=== PATIENT | female | born 1970 | race Native Hawaiian/Other Pacific Islander ===

== ENCOUNTER 2017-06-23 09:05 | Inpatient (IN) | payer MEDICAID ==
[2017-06-18 12:58] VITALS: BMI 34.0
[2017-06-23] MEDS ORDERED: Lidocaine 1% Inj (20ml) ONE (12:58)
[2017-06-23] MEDS ORDERED: Bupivacaine HCl 0.25% PF (10 ml) Inj ONE (12:58)
[2017-06-23] MEDS ORDERED: ceFAZolin IV 1 gm in Dextrose 1 GM/50 ML BAG IVPB ONE (12:58)
[2017-06-23] MEDS ORDERED: Midazolam 2 MG/2 ML VIAL ONE (13:01)
[2017-06-23] MEDS ORDERED: Propofol 10 mg/ml Inj (20 ML) ONE ×2 (13:01→13:31)
[2017-06-23] MEDS ORDERED: Lactated Ringer's 1,000 ML IV ONE (13:05)
[2017-06-23] MEDS ORDERED: Oxycodone/Acetaminophen 5/325 mg Tab PO PRN (13:38)
--- NOTE | 2017-06-23 18:35 | CP.PCM.CON ---
History of Present Illness - History of Present Illness History of Present Illness: s/p drainage neck abscess iv rx in progress Review of Systems - Review of Systems Systems not reviewed;Unavailable: Language Barrier All systems: reviewed and no additional remarkable complaints except - Integumentary Integumentary: As Per HPI Past Patient History - Past Medical History & Family History Past Medical History?: Yes - Past Social History Smoking Status: Never Smoked - CARDIAC Hx Hypercholesterolemia: Yes - PULMONARY Hx Respiratory Disorders: No - NEUROLOGICAL Hx Neurological Disorder: No - HEENT Hx HEENT Problems: No - RENAL Hx Chronic Kidney Disease: No - ENDOCRINE/METABOLIC Hx Endocrine Disorders: No - HEMATOLOGICAL/ONCOLOGICAL Hx Blood Disorders: No - INTEGUMENTARY Hx Dermatological Problems: Yes (LEFT NECK MASS) - MUSCULOSKELETAL/RHEUMATOLOGICAL Hx Musculoskeletal Disorders: Yes (NERVE PAIN LEFT ARM NO LONGER) Hx Falls: No - GASTROINTESTINAL Hx Gastrointestinal Disorders: No - GENITOURINARY/GYNECOLOGICAL Hx Genitourinary Disorders: No - PSYCHIATRIC Hx Psychophysiologic Disorder: No Hx Substance Use: No - SURGICAL HISTORY Hx Surgeries: No - ANESTHESIA Hx Anesthesia: No Has any member of the family had a problem w/ anesthesia?: No Meds Allergies/Adverse Reactions: Allergies Allergy/AdvReac Type Severity Reaction Status Date / Time No Known Allergies Allergy Verified 06/18/17 12:56 - Medications Medications: Current Medications Docusate Sodium (Colace) 100 mg PO BID [facility] Last Admin: 06/23/17 18:09 Dose: 100 mg Enoxaparin Sodium (Lovenox) 30 mg SC 1000,2200 [facility] Ketorolac Tromethamine (Toradol) 30 mg IVP Q6 PRN PRN Reason: pain 8-10 Stop: 06/28/17 13:39 Ondansetron HCl (Zofran Inj) 4 mg IVP Q6 PRN PRN Reason: Nausea/Vomiting Oxycodone/Acetaminophen (Percocet 5/325 Mg Tab) 2 tab PO Q4H PRN PRN Reason: pain Stop: 06/26/17 13:39 Pantoprazole Sodium (Protonix Inj) 40 mg IVP DAILY [facility] Pneumococcal Polyvalent Vaccine (Pneumovax 23 Vaccine) 0.5 ml IM .ONCE ONE Stop: 06/26/17 10:01 Physical Exam - Constitutional Appears: Non-toxic, No Acute Distress - Head Exam Head Exam: NORMOCEPHALIC - Eye Exam Eye Exam: PERRL. absent: Scleral icterus - ENT Exam ENT Exam: Mucous Membranes Dry - Neck Exam Neck exam: Negative for: Lymphadenopathy - Respiratory Exam Respiratory Exam: Decreased Breath Sounds - Cardiovascular Exam Cardiovascular Exam: REGULAR RHYTHM - GI/Abdominal Exam GI & Abdominal Exam: Diminished Bowel Sounds, Soft - Rectal Exam Rectal Exam: Deferred - Exam Exam: Uretheral Discharge - Extremities Exam Extremities exam: Positive for: pedal pulses present. Negative for: calf tenderness, pedal edema, tenderness - Back Exam Back exam: absent: CVA tenderness (L), CVA tenderness (R) - Neurological Exam Neurological exam: Alert, CN II-XII Intact, Oriented x3, Reflexes Normal - Psychiatric Exam Psychiatric exam: Normal Mood - Skin Skin Exam: Dry Results - Vital Signs Recent Vital Signs: Last Vital Signs Temp 97.9 F 06/23/17 16:25 Pulse 56 L 06/23/17 16:25 Resp 20 06/23/17 16:25 BP 116/81 06/23/17 16:25 Pulse Ox 97 06/23/17 16:25 Assessment & Plan - Assessment and Plan (Free Text) Assessment: s/p I and D await or cultures iv rx started
[2017-06-23] MEDS: ceFAZolin 1 gm FROZEN Premix 1 GM/50 ML ML IVPB SCH (21:24)
[2017-06-23] MEDS: Enoxaparin 30 mg Syringe SC SCH ×2 (21:24→21:37)
--- NOTE | 2017-06-24 00:10 | CP.PCM.CON ---
History of Present Illness - History of Present Illness History of Present Illness: 46 Y/O [place] FEMALE WITH ABCESS IN L POSTERIOR NECK S/P OR, AND [facility] IS ADMITTED WITH S/P SURGERY AND [facility] HAS NECK PAIN AND FEVER, SHE HAS H/O HTN, NO COUGH Review of Systems - Constitutional Constitutional: Fever Past Patient History - Past Medical History & Family History Past Medical History?: Yes - Past Social History Smoking Status: Never Smoked - CARDIAC Hx Hypercholesterolemia: Yes - PULMONARY Hx Respiratory Disorders: No - NEUROLOGICAL Hx Neurological Disorder: No - HEENT Hx HEENT Problems: No - RENAL Hx Chronic Kidney Disease: No - ENDOCRINE/METABOLIC Hx Endocrine Disorders: No - HEMATOLOGICAL/ONCOLOGICAL Hx Blood Disorders: No - INTEGUMENTARY Hx Dermatological Problems: Yes (LEFT NECK MASS) - MUSCULOSKELETAL/RHEUMATOLOGICAL Hx Musculoskeletal Disorders: Yes (NERVE PAIN LEFT ARM NO LONGER) Hx Falls: No - GASTROINTESTINAL Hx Gastrointestinal Disorders: No - GENITOURINARY/GYNECOLOGICAL Hx Genitourinary Disorders: No - PSYCHIATRIC Hx Psychophysiologic Disorder: No Hx Substance Use: No - SURGICAL HISTORY Hx Surgeries: No - ANESTHESIA Hx Anesthesia: No Has any member of the family had a problem w/ anesthesia?: No Meds Allergies/Adverse Reactions: Allergies Allergy/AdvReac Type Severity Reaction Status Date / Time No Known Allergies Allergy Verified 06/18/17 12:56 - Medications Medications: Current Medications Baclofen (Lioresal) 10 mg PO HS [facility] Last Admin: 06/23/17 21:24 Dose: 10 mg Docusate Sodium (Colace) 100 mg PO BID [facility] Last Admin: 06/23/17 18:09 Dose: 100 mg Enoxaparin Sodium (Lovenox) 30 mg SC 1000,2200 [facility] Last Admin: 06/23/17 21:37 Dose: Not Given Folic Acid (Folic Acid) 1 mg PO DAILY [facility] Cefazolin Sodium (Ancef) 1 gm in 50 mls @ 100 mls/hr IVPB Q8 [facility] Last Admin: 06/23/17 21:24 Dose: 100 mls/hr Ketorolac Tromethamine (Toradol) 30 mg IVP Q6 PRN PRN Reason: pain 8-10 Stop: 06/28/17 13:39 Naproxen (Anaprox Ds) 550 mg PO BID [facility] Ondansetron HCl (Zofran Inj) 4 mg IVP Q6 PRN PRN Reason: Nausea/Vomiting Oxycodone/Acetaminophen (Percocet 5/325 Mg Tab) 2 tab PO Q4H PRN PRN Reason: pain Stop: 06/26/17 13:39 Last Admin: 06/23/17 21:28 Dose: 2 tab Pantoprazole Sodium (Protonix Inj) 40 mg IVP DAILY [facility] Pneumococcal Polyvalent Vaccine (Pneumovax 23 Vaccine) 0.5 ml IM .ONCE ONE Stop: 06/26/17 10:01 Rosuvastatin Calcium (Crestor) 5 mg PO HS [facility] Last Admin: 06/23/17 21:24 Dose: 5 mg Physical Exam - Constitutional Appears: Non-toxic, No Acute Distress - Head Exam Head Exam: ATRAUMATIC, NORMAL INSPECTION, NORMOCEPHALIC - Eye Exam Eye Exam: EOMI, Normal appearance, PERRL Pupil Exam: NORMAL ACCOMODATION - ENT Exam ENT Exam: Mucous Membranes Moist, Normal Exam, Normal Oropharynx, TM's Normal Bilaterally - Neck Exam Neck exam: Positive for: Normal Inspection - Respiratory Exam Respiratory Exam: Clear to Auscultation Bilateral, NORMAL BREATHING PATTERN - Cardiovascular Exam Cardiovascular Exam: REGULAR RHYTHM, +S1, +S2 - GI/Abdominal Exam GI & Abdominal Exam: Normal Bowel Sounds - Rectal Exam Rectal Exam: NORMAL INSPECTION - Extremities Exam Extremities exam: Positive for: normal capillary refill, normal inspection - Back Exam Back exam: NORMAL INSPECTION - Neurological Exam Neurological exam: Alert, CN II-XII Intact, Normal Gait, Oriented x3, Reflexes Normal - Psychiatric Exam Psychiatric exam: Normal Mood Results - Vital Signs Recent Vital Signs: Last Vital Signs Temp 97.9 F 06/23/17 16:25 Pulse 56 L 06/23/17 16:25 Resp 20 06/23/17 16:25 BP 116/81 06/23/17 16:25 Pulse Ox 97 06/23/17 16:25 Assessment & Plan (1) Abscess of neck Assessment and Plan: FOR OR AGAIN IN AM Status: Acute (2) Hypertension Status: Chronic (3) Acute gastritis Status: Chronic Priority: Low
--- NOTE | 2017-06-24 03:25 | OP ---
PROCEDURE DATE: 06/23/2017 PREOPERATIVE DIAGNOSIS: Neck mass. POSTOPERATIVE DIAGNOSIS: Septic neck mass with extensive neck abscess. PROCEDURE: Wide and deep incision of neck mass with drainage of neck abscess and debridement. SURGEON: Dr. Anders. TYPE OF ANESTHESIA: General. ESTIMATED BLOOD LOSS: 30 mL POSTOP CONDITION: Stable. INDICATIONS FOR SURGERY: This is a 46-year-old female who presented with infected cyst of neck, which now is grown into a large infected mass, possibly neck abscess. It is located in the left side of her neck. She is taken to the OR now for drainage and debridement. DESCRIPTION OF PROCEDURE: The patient was taken to the operating room. IV sedation was administered and the left neck area was extended, prepped and draped, local anesthesia was administered and a generous elliptical incision was made surrounding the mass, abscess cavity was entered, the pus was drained and cultured. The infected mass is completely excised to the fascia layer and debrided. A bleeding blood vessel in the neck was repaired. The wound was irrigated with copious amounts of saline solution. A partial tissue transfer closure was performed. The central portion of the wound was packed up in wet saline gauze. The patient tolerated the procedure well, and returned to the recovery room in stable condition. Humberto Anders MD
[2017-06-24] MEDS: ceFAZolin 1 gm FROZEN Premix 1 GM/50 ML ML IVPB SCH ×3 (05:26→21:41)
[2017-06-24 07:20] LABS: BASO % 0.6 % (0.0-2.0); EOS # 0.6 K/uL (0.0-0.7); EOS % 6.9 % (0.0-4.0); HEMATOCRIT 39.6 % (34.0-47.0); LYMPH # 2.4 K/uL (1.0-4.3); LYMPH % 30.1 % (20.0-40.0); MEAN CELL VOLUME 88.7 fL (81.0-99.0); MEAN CORPUSCULAR HEMOGLOBIN 30.3 pg (27.0-31.0); MEAN CORPUSCULAR HGB CONC 34.1 g/dL (33.0-37.0); MEAN PLATELET VOLUME 10.5 fL (7.2-11.7); MONO # 0.4 K/uL (0.0-0.8); MONO % 5.4 % (0.0-10.0); RED CELL DISTRIBUTION WIDTH 12.4 % (11.5-14.5)
[2017-06-24 07:28] LABS: CHLORIDE 102 mmol/L (98-107); SODIUM 140 mmol/L (132-148)
[2017-06-24 07:29] LABS: POTASSIUM 3.6 mmol/L (3.6-5.2)
[2017-06-24 07:31] LABS: ALB/GLOB RATIO 1.1 (1.0-2.1); ALKALINE PHOSPHATASE 96 U/L (38-126); AST/SGOT 26 U/L (14-36); BILIRUBIN,TOTAL 0.6 mg/dL (0.2-1.3); BLOOD UREA NITROGEN 19 mg/dL (7-17); CARBON DIOXIDE 25 mmol/L (22-30); GFR AFRICAN-AMERICAN > 60
[2017-06-24 07:32] LABS: ALT/SGPT 52 U/L (9-52); GLUCOSE,RANDOM 114 mg/dL (65-105)
[2017-06-24] MEDS: Enoxaparin 30 mg Syringe SC SCH ×2 (09:35→21:41)
[2017-06-24] MEDS: Naproxen 550 mg Tab PO SCH ×2 (09:36→17:35)
[2017-06-24] MEDS ORDERED: Midazolam 2 MG/2 ML VIAL ONE (13:15)
[2017-06-24] MEDS ORDERED: Propofol 10 mg/ml Inj (20 ML) ONE (13:19)
[2017-06-24] MEDS: Lidocaine 1% Inj (20ml) ONE (13:27)
[2017-06-24] MEDS: Bupivacaine HCl 0.5% PF (10 ml) Inj ONE (13:27)
[2017-06-24] MEDS ORDERED: ceFAZolin IV 1 gm in Dextrose 1 GM/50 ML BAG IVPB ONE (14:01)
--- NOTE | 2017-06-24 22:35 | CP.PCM.PN ---
Subjective - Subjective Subjective: FOR OR, NO SOB, NO NAUSEA Objective - Vital Signs/Intake and Output Vital Signs (last 24 hours): Temp Pulse Resp BP Pulse Ox 97.3 F L 58 L 20 107/71 98 06/24/17 15:31 06/24/17 15:31 06/24/17 15:31 06/24/17 15:31 06/24/17 15:31 Intake and Output: 06/24/17 06/25/17 18:59 06:59 Intake Total 200 200 Output Total 900 Balance 200 -700 - Medications Medications: Current Medications Baclofen (Lioresal) 10 mg PO HS [facility] Last Admin: 06/24/17 21:39 Dose: 10 mg Docusate Sodium (Colace) 100 mg PO BID [facility] Last Admin: 06/24/17 17:35 Dose: 100 mg Enoxaparin Sodium (Lovenox) 30 mg SC 1000,2200 [facility] Last Admin: 06/24/17 21:41 Dose: Not Given Folic Acid (Folic Acid) 1 mg PO DAILY [facility] Last Admin: 06/24/17 09:36 Dose: Not Given Cefazolin Sodium (Ancef) 1 gm in 50 mls @ 100 mls/hr IVPB Q8 [facility] Last Admin: 06/24/17 21:41 Dose: 100 mls/hr Ketorolac Tromethamine (Toradol) 30 mg IVP Q6 PRN PRN Reason: pain 8-10 Stop: 06/28/17 13:39 Naproxen (Anaprox Ds) 550 mg PO BID [facility] Last Admin: 06/24/17 17:35 Dose: 550 mg Ondansetron HCl (Zofran Inj) 4 mg IVP Q6 PRN PRN Reason: Nausea/Vomiting Last Admin: 06/24/17 09:38 Dose: 4 mg Oxycodone/Acetaminophen (Percocet 5/325 Mg Tab) 2 tab PO Q4H PRN PRN Reason: pain Stop: 06/26/17 13:39 Last Admin: 06/23/17 21:28 Dose: 2 tab Pantoprazole Sodium (Protonix Inj) 40 mg IVP DAILY [facility] Last Admin: 06/24/17 09:35 Dose: 40 mg Pneumococcal Polyvalent Vaccine (Pneumovax 23 Vaccine) 0.5 ml IM .ONCE ONE Stop: 06/26/17 10:01 Rosuvastatin Calcium (Crestor) 5 mg PO HS [facility] Last Admin: 06/24/17 21:39 Dose: 5 mg - Labs Labs: 06/24/17 06:57 06/24/17 06:57 - Constitutional Appears: Non-toxic, No Acute Distress - Head Exam Head Exam: ATRAUMATIC, NORMAL INSPECTION, NORMOCEPHALIC - Eye Exam Eye Exam: EOMI, Normal appearance, PERRL Pupil Exam: NORMAL ACCOMODATION (L NECK WOUND) - ENT Exam ENT Exam: Mucous Membranes Moist, Normal Exam - Neck Exam Neck Exam: Normal Inspection - Respiratory Exam Respiratory Exam: Clear to Ausculation Bilateral, NORMAL BREATHING PATTERN - Cardiovascular Exam Cardiovascular Exam: REGULAR RHYTHM, +S1, +S2 - GI/Abdominal Exam GI & Abdominal Exam: Soft, Normal Bowel Sounds - Rectal Exam Rectal Exam: NORMAL INSPECTION - Extremities Exam Extremities Exam: Normal Capillary Refill - Neurological Exam Neurological Exam: Alert, Awake, CN II-XII Intact, Normal Gait, Oriented x3 - Psychiatric Exam Psychiatric exam: Normal Mood - Skin Skin Exam: Intact Assessment and Plan (1) Abscess of neck Status: Acute (2) Hypertension Status: Chronic (3) Acute gastritis Status: Chronic
[2017-06-25] MEDS: ceFAZolin 1 gm FROZEN Premix 1 GM/50 ML ML IVPB SCH (06:47)
--- NOTE | 2017-06-25 07:42 | OP ---
PROCEDURE DATE: 06/24/2017 PREOPERATIVE DIAGNOSIS: Infected mass of the left neck, status post incision, drainage and removal. POSTOPERATIVE DIAGNOSIS: Infected mass of the left neck, status post incision, drainage and removal. PROCEDURE PERFORMED: Re-debridement removal of infected mass of the left neck with re-drainage of abscess and partial tissue transfer closure. SURGEON: Dr. Anders. TYPE OF ANESTHESIA: General. ESTIMATED BLOOD LOSS: 30 mL. POSTOPERATIVE CONDITION: Stable. DESCRIPTION OF PROCEDURE: The patient was taken back to the operating room, IV sedation was administered and the left neck was prepped and draped. Local anesthesia was administered and wound was aggressively debrided and any remnants of the infected mass were completely excised and removed. Bleeding was controlled using a Bovie. A large blood vessel was repaired. The wound was pulse irrigated with saline and Kantrex solution. A partial tissue transfer closure was performed and the central portion of the wound was packed up in wet saline gauze. The patient tolerated the procedure well and returned to recovery room in stable condition. Humberto Anders MD
[2017-06-25] MEDS: Naproxen 550 mg Tab PO SCH ×2 (11:00→17:46)
[2017-06-25] MEDS: Enoxaparin 30 mg Syringe SC SCH (11:01)
[2017-06-25] MEDS ORDERED: Midazolam 2 MG/2 ML VIAL ONE (13:12)
[2017-06-25] MEDS ORDERED: Propofol 10 mg/ml Inj (20 ML) ONE ×2 (13:12→14:59)
[2017-06-25] MEDS ORDERED: Lactated Ringer's 1,000 ML IV ONE ×2 (13:43)
[2017-06-25] MEDS ORDERED: Lidocaine 1% Inj (20ml) ONE (14:53)
[2017-06-25] MEDS ORDERED: Bupivacaine HCl 0.25% PF (10 ml) Inj ONE (14:53)
[2017-06-25] MEDS: Lidocaine 1% Inj (20ml) ONE (15:15)
[2017-06-25] MEDS: Bupivacaine HCl 0.5% PF (10 ml) Inj ONE (15:15)
[2017-06-25] MEDS ORDERED: HYDROmorphone 0.5 mg/0.5 ml ISec IVP PRN ×2 (15:40→18:00)
[2017-06-25] MEDS ORDERED: Bacitracin Ointment 30 GM TUBE ONE (16:24)
[2017-06-25 16:46] VITALS: BP 139/83; PULSE 58; RESP 12; TEMP 97.5; O2SAT 99
--- NOTE | 2017-06-25 16:47 | CP.PCM.PN ---
Subjective - Date & Time of Evaluation Date of Evaluation: 06/25/17 Time of Evaluation: 20:00 - Subjective Subjective: Pt seen an d examined today, c/o mild pain to the left neck , denies any other complaints FOR OR TODAY Objective - Vital Signs/Intake and Output Vital Signs (last 24 hours): Temp Pulse Resp BP Pulse Ox 97.8 F 62 13 115/69 99 06/25/17 15:33 06/25/17 15:45 06/25/17 15:45 06/25/17 15:45 06/25/17 15:45 Intake and Output: 06/25/17 06/25/17 06:59 18:59 Intake Total 250 Output Total 900 Balance -650 - Medications Medications: Current Medications Baclofen (Lioresal) 10 mg PO HS [facility] Last Admin: 06/24/17 21:39 Dose: 10 mg Docusate Sodium (Colace) 100 mg PO BID [facility] Last Admin: 06/25/17 11:00 Dose: Not Given Enoxaparin Sodium (Lovenox) 30 mg SC 1000,2200 [facility] Last Admin: 06/25/17 11:01 Dose: Not Given Folic Acid (Folic Acid) 1 mg PO DAILY [facility] Last Admin: 06/24/17 09:36 Dose: Not Given Hydromorphone HCl (Dilaudid) 0.5 mg IVP Q15M PRN PRN Reason: Pain, severe (8-10) Hydromorphone HCl (Dilaudid) 0.5 mg IVP Q5M PRN PRN Reason: Pain, severe (8-10) Stop: 06/25/17 17:41 Cefazolin Sodium (Ancef) 1 gm in 50 mls @ 100 mls/hr IVPB Q8 [facility] Last Admin: 06/25/17 06:47 Dose: 100 mls/hr Naproxen (Anaprox Ds) 550 mg PO BID [facility] Last Admin: 06/25/17 11:00 Dose: Not Given Ondansetron HCl (Zofran Inj) 4 mg IVP Q6 PRN PRN Reason: Nausea/Vomiting Last Admin: 06/24/17 09:38 Dose: 4 mg Ondansetron HCl (Zofran Inj) 4 mg IVP ONCE PRN PRN Reason: Nausea/Vomiting Stop: 06/25/17 17:39 Oxycodone/Acetaminophen (Percocet 5/325 Mg Tab) 2 tab PO Q4H PRN PRN Reason: pain Stop: 06/26/17 13:39 Last Admin: 06/23/17 21:28 Dose: 2 tab Pantoprazole Sodium (Protonix Inj) 40 mg IVP DAILY [facility] Last Admin: 06/25/17 10:59 Dose: 40 mg Pneumococcal Polyvalent Vaccine (Pneumovax 23 Vaccine) 0.5 ml IM .ONCE ONE Stop: 06/26/17 10:01 Rosuvastatin Calcium (Crestor) 5 mg PO HS [facility] Last Admin: 06/24/17 21:39 Dose: 5 mg - Labs Labs: 06/24/17 06:57 06/24/17 06:57 - Constitutional Appears: Well, No Acute Distress - Head Exam Head Exam: ATRAUMATIC, NORMAL INSPECTION, NORMOCEPHALIC - Eye Exam Eye Exam: Normal appearance, PERRL - ENT Exam ENT Exam: Mucous Membranes Moist - Neck Exam Neck Exam: Full ROM, Tenderness (dressing to lef side in place) - Respiratory Exam Respiratory Exam: Clear to Ausculation Bilateral, NORMAL BREATHING PATTERN - Cardiovascular Exam Cardiovascular Exam: REGULAR RHYTHM - GI/Abdominal Exam GI & Abdominal Exam: Soft, Normal Bowel Sounds - Extremities Exam Extremities Exam: Full ROM - Neurological Exam Neurological Exam: Alert, Awake, Oriented x3 Assessment and Plan (1) Abscess of neck Assessment & Plan: FOR OR TODAY - REMOVAL OF PACKING AND CLOSURE OF WOUND Status: Acute
[2017-06-25] MEDS ORDERED: Pneumococcal 23-Valent Vaccine IM ONE (17:00)
--- NOTE | 2017-06-26 00:53 | OP ---
PROCEDURE DATE: 06/25/2017 PREOPERATIVE DIAGNOSIS: Neck abscess status post incision and drainage, debridement. POSTOPERATIVE DIAGNOSIS: Neck abscess status post incision and drainage, debridement. PROCEDURE PERFORMED: Debridement, re-drainage of neck abscess with primary closure. SURGEON: Dr. Anders. TYPE OF ANESTHESIA: General. ESTIMATED BLOOD LOSS: 15 mL POSTOPERATIVE CONDITION: Stable. DESCRIPTION OF PROCEDURE: The patient was taken back preoperative room today for final debridement closure of the wound under anesthesia. She was taken to the operating room, placed in the supine position with the left neck extended and IV sedation was administered. The neck wound was then prepped and draped, local anesthesia was infiltrated, the wound was again aggressively debrided and remaining collections were drained and cultured. Bleeding was controlled using Bovie. A larger neck blood vessel was repaired with Prolene. The wound was pulse irrigated with saline and Kantrex solution. Generous tissue flaps were raised using a Bovie and adjacent tissue transfer closure was performed using multiple layers of Monocryl and Bacitracin ointment was then placed on the wound and dressed sterilely. The patient tolerated the procedure well and returned to the recovery room in stable condition. Humberto Anders MD
--- NOTE | 2017-06-26 20:01 | CP.PCM.PN ---
Subjective - Date & Time of Evaluation Date of Evaluation: 06/25/17 - Subjective Subjective: s/p OR, NO CHEST PAIN, NO FEVER, NO COUGH Objective - Vital Signs/Intake and Output Vital Signs (last 24 hours): Temp Pulse Resp BP Pulse Ox 97.5 F L 58 L 12 139/83 99 06/25/17 16:45 06/25/17 16:45 06/25/17 16:45 06/25/17 16:45 06/25/17 16:45 - Labs Labs: 06/24/17 06:57 06/24/17 06:57 - Constitutional Appears: Non-toxic, No Acute Distress - Head Exam Head Exam: ATRAUMATIC, NORMAL INSPECTION, NORMOCEPHALIC - Eye Exam Eye Exam: EOMI, Normal appearance Pupil Exam: NORMAL ACCOMODATION - ENT Exam ENT Exam: Mucous Membranes Moist, Normal Exam - Neck Exam Neck Exam: Normal Inspection - Respiratory Exam Respiratory Exam: Clear to Ausculation Bilateral, NORMAL BREATHING PATTERN - Cardiovascular Exam Cardiovascular Exam: REGULAR RHYTHM, +S1, +S2 - GI/Abdominal Exam GI & Abdominal Exam: Soft, Normal Bowel Sounds - Rectal Exam Rectal Exam: NORMAL INSPECTION - Extremities Exam Extremities Exam: Normal Capillary Refill, Normal Inspection - Neurological Exam Neurological Exam: Alert, Awake, CN II-XII Intact, Normal Gait, Oriented x3 Neuro motor strength exam: Left Upper Extremity: 5, Right Upper Extremity: 5, Left Lower Extremity: 5, Right Lower Extremity: 5 - Psychiatric Exam Psychiatric exam: Normal Affect - Skin Skin Exam: Dry Assessment and Plan (1) Abscess of neck Status: Acute (2) Hypertension Status: Chronic (3) Acute gastritis Status: Chronic
== END 2017-06-25 18:30 | disposition home or self-care (01) | DRG 264 ==
LOC: C.SDS 09:05 → C.9E 13:38 → C.9S 14:22 → C.5T 14:42 → C.3T 06-24 22:25
PROVIDERS: ADMIT Internal Medicine; ATTEND Internal Medicine
PROC: 0J940ZZ Drainage of Right Neck Subcutaneous Tissue and Fascia, Open Approach (ICD-10-PCS; 2017-06-23)
PROC: 0JB50ZZ Excision of Left Neck Subcutaneous Tissue and Fascia, Open Approach (ICD-10-PCS; principal; 2017-06-23 13:05)
PROC: 0J940ZZ Drainage of Right Neck Subcutaneous Tissue and Fascia, Open Approach (ICD-10-PCS; 2017-06-24)
PROC: 0JB50ZZ Excision of Left Neck Subcutaneous Tissue and Fascia, Open Approach (ICD-10-PCS; 2017-06-24)
PROC: 0J940ZZ Drainage of Right Neck Subcutaneous Tissue and Fascia, Open Approach (ICD-10-PCS; 2017-06-25)
PROC: 0JB50ZZ Excision of Left Neck Subcutaneous Tissue and Fascia, Open Approach (ICD-10-PCS; 2017-06-25)
PROC: 0JQ40ZZ Repair Right Neck Subcutaneous Tissue and Fascia, Open Approach (ICD-10-PCS; 2017-06-25)
DX: L02.11 Cutaneous abscess of neck (principal); I10 Essential (primary) hypertension; K29.00 Acute gastritis without bleeding